=== PATIENT | female | born 1965 | race Caucasian/White ===

== ENCOUNTER → 2016-10-24 | Outpatient (CLI) | payer BC ==
[~2016-10-24] MED LIST: MOTRIN800 MG PO; SYNTHROID25 MCG PO
== END | disposition short-term general hospital (02) ==
LOC: CLSURG 08:26
DX: Z48.815 Encounter for surgical aftercare following surgery on the digestive system (principal); Z90.49 Acquired absence of other specified parts of digestive tract

== ENCOUNTER 2016-10-30 11:11 | Emergency (ER) | payer BC ==
[~2016-10-30] VITALS: Ht 180.3 cm; Wt 133.8 kg
[2016-10-30] MEDS ORDERED: SYNTHROID25 MCG PO ×2 (13:00→13:21)
[2016-10-30] MEDS ORDERED: MOTRIN800 MG PO (13:01)
== END 2016-10-30 14:02 | disposition short-term general hospital (02) ==
LOC: ER 11:11
DX: R94.5 Abnormal results of liver function studies (principal); D72.829 Elevated white blood cell count, unspecified; E03.9 Hypothyroidism, unspecified; Z90.49 Acquired absence of other specified parts of digestive tract; Z90.89 Acquired absence of other organs; Z79.899 Other long term (current) drug therapy; Z88.2 Allergy status to sulfonamides; Z88.5 Allergy status to narcotic agent
CPT/HCPCS: J1885; J2405; J2543